=== PATIENT | female | born 2000 | race Caucasian/White ===

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

== ENCOUNTER → 2022-07-20 13:02 | Outpatient (CLI) | payer OTHER, SELFPAY ==
--- NOTE | ~2022-07-20 | CT_ITS ---
EXAMINATION: CT abdomen pelvis w con DATE: 07/20/2022 13:52 INDICATION: Left upper quadrant abdominal lump. TECHNIQUE: Computed tomography (CT) of the abdomen and pelvis was performed with 100 mL Omnipaque 350 intravenous contrast. Automated exposure control and iterative reconstruction technique were employe d. The dose-length product was 1303.02 mGy-cm. COMPARISON: CT abdomen and pelvis 06/29/2016 FINDINGS: The visualized portions of the lung bases are clear without pneumonia or pleural effusion. The heart size is normal. No pericardial effusion. The liver, gallbladder, spleen, pancreas, adrenal glands, and right kidney are normal. There is a 10 mm cyst in left kidney. There are no dilated loops of bowel. The appendix is not visualized. There are no pathologically enlarged lymph nodes. There is no free intraperitoneal fluid. There is mild thoracolumbar spondylosis. IMPRESSION: 1. No abnormal mass to correlate with the patient's symptoms. Reviewed, dictated and finalized at location A.
== END ==
PROVIDERS: PCP Family Medicine; Visit Provider Physician Assistant
DX: R19.02 Left upper quadrant abdominal swelling, mass and lump (principal); R19.7 Diarrhea, unspecified
CPT/HCPCS: 74177; Q9967

== ENCOUNTER → 2022-08-12 13:01 | Outpatient (CLI) | payer OTHER, SELFPAY ==
--- NOTE | ~2022-08-12 | US_ITS ---
EXAMINATION: US transvaginal DATE: 08/12/2022 13:36 INDICATION: History of ovarian cysts. Comparison:03/16/2021 TECHNIQUE: Multiple endovaginal sonographic images of the pelvis performed. FINDINGS: The uterus measures 4.6 x 2.6 x 3.7 cm. The endometrial complex measures 3 mm. The right ovary measures 2.6 x 2.9 x 1.6 cm and the left ovary is surgically absent. There are small follicles in the right ovary. Normal doppler signal in the right ovary. There is no free fluid in the pelvis. There are no abnormal masses seen on either side. IMPRESSION: 1. Unremarkable pelvic ultrasound. Reviewed, dictated and finalized at location A. ET CLERK
== END ==
PROVIDERS: PCP Family Medicine; Visit Provider Nurse Practitioner
DX: N83.209 Unspecified ovarian cyst, unspecified side (principal)
CPT/HCPCS: 76830

== ENCOUNTER 2024-05-16 08:13 | Outpatient (CLI) | payer OTHER, SELFPAY ==
--- NOTE | ~2024-05-16 | XR_ITS ---
EXAMINATION: XR UGI wo kub DATE: 05/16/2024 09:44 INDICATION: Abdominal pain. TECHNIQUE: The patient drank thick barium, gas-producing crystals, and thin barium. Fluoroscopy of th e esophagus, stomach, and proximal small bowel was performed. Fluoroscopy exposure time was 0.6 minut es. The total number of images was 279. Total dose-area product was 3.513 Gy-cm^2. COMPARISON: CT abdomen and pelvis 07/20/2022 FINDINGS: There is no mass or stricture of the esophagus. Esophageal motility is normal. There is no hiatal hernia. There was no gastroesophageal reflux with provocative maneuvers. The stomach and proxi mal small bowel show normal folding patterns. IMPRESSION: 1. Normal upper gastrointestinal series. Reviewed, dictated and finalized at location A.
--- NOTE | ~2024-05-16 | US_ITS ---
EXAMINATION: US abdomen complete DATE: 05/16/2024 08:55 INDICATION: Abdominal pain. TECHNIQUE: Multiple grayscale and Doppler ultrasound images of the abdomen were obtained. COMPARISON: CT abdomen and pelvis 11/20/2021 FINDINGS: The visualized portions of the head and body of the pancreas are normal. The liver is kati l without focal lesion. There is normal flow in main portal vein. The gallbladder is contracted and c ontains gallstones. There is no sonographic Wray sign. The common duct is normal and measures 4 mm. Abdominal aorta is normal in caliber. Inferior vena cava is normal. The kidneys are normal in size. The spleen is normal in size. IMPRESSION: 1. Cholelithiasis. No evidence of acute cholecystitis. Reviewed, dictated and finalized at location A.
== END 2024-05-16 08:14 | disposition home or self-care (01) ==
LOC: ANHIMG 08:15
PROVIDERS: PCP Family Medicine; Visit Provider Physician Assistant
DX: R10.9 Unspecified abdominal pain (principal); K80.20 Calculus of gallbladder without cholecystitis without obstruction
CPT/HCPCS: 74240; 76700

== ENCOUNTER 2024-09-25 10:41 | Outpatient (CLI) | payer OTHER, SELFPAY ==
--- NOTE | ~2024-09-25 | US_ITS ---
EXAMINATION: US pelvic complete w TV DATE: 09/25/2024 12:13 INDICATION: Pelvic pain , history of left oophorectomy. TECHNIQUE: Multiple transabdominal and endovaginal sonographic images of the pelvis were obtained. COMPARISON: 08/12/2022. FINDINGS: Uterus: 7.2 x 2.4 x 4.9 cm. Endometrial complex measures 5 mm. Right Ovary: 2.3 x 2.0 x 1.7 cm. Vascular flow is present. No adnexal mass. Left Ovary: Surgically absent. No adnexal mass. There is no free fluid in the pelvis. IMPRESSION: Status post left oophorectomy, otherwise normal pelvic sonogram findings. Reviewed, dictated and finalized at location K. COUNT ASSOCIATE
== END 2024-09-25 10:42 | disposition home or self-care (01) ==
PROVIDERS: PCP Internal Medicine; Visit Provider Obstetrics & Gynecology Gynecology
DX: R10.2 Pelvic and perineal pain (principal); Z90.721 Acquired absence of ovaries, unilateral
CPT/HCPCS: 76830; 76856

== ENCOUNTER 2024-12-28 10:45 | Outpatient (RCR) | payer OTHER, SELFPAY ==
--- NOTE | 2024-10-18 13:05 | OPREHPOC ---
Outpatient Therapy Plan of Care This is a Multidisciplinary Plan of Care that may contain components documented by all disciplines (PT, OT, and ST.) PT Problem 1 PT Problem #1 Knowledge Deficit PT Goal 1 Goal / Goal Update 1. Patient will perform independent HEP 2. Patient will verbalize urge suppression strategies Target Visit 6 PT Problem 2 PT Problem #2 Pain PT Goal 1 Goal / Goal Update 1. Pelvic pain no higher than 3/10 with typical activities 2. No pain with pelvic exam to allow for pap smears and other medical management Target Visit 6 PT Problem 3 PT Problem #3 Impaired Strength PT Goal 1 Goal / Goal Update 1. Improve hip strength to 4+/5 in all planes Target Visit 6 PT Problem 4 PT Problem #4 Impaired Functional ADLs PT Goal 1 Goal / Goal Update 1. Patient able to hold urine at least 30 minutes at all times Target Visit 6
--- NOTE | 2024-10-18 13:05 | PTOPEVAL1 ---
Assessment and note entered by Lee Ann Lee DPT Evaluation Information Assessment Status Evaluation ICD-10 Condition Codes (PT) Pain in low back M54.50,Pelvic and perineal pain R10.2 Subjective Information Pt reports prior pelvic PT which helped but symptoms have gotten worse. States she has pelvic floor pain that radiates to her low back. Pt had a 26 cm x 15 cm x 30 cm ovarian cyst when she was 15 and had it removed along with her ovary. Has had issues since then. Highest pain in the last month 03/05 and lowest 11/05. Voids less than 10 times a day, sometimes 1 time at night. Feels like she has to push to urinate. Has had incontinence in the past but none recently. Pain with urination all the time. Can hold urge to void up to 60 minutes if distracted but does note some urgency. BM most days of the week, no pain or fecal incontinence. Pelvic pain with any kind of penetration including pap smear, has tried to use tampons and is unable to tolerate. Pt has never been . Patient goal: less pain Returns to MD in July. Gall bladder removed June 2024. Has been diagnosed with PCOS. Reported Pain Level Pain Score 3: Self Report Assessment PT Clinical Summary The patient is presenting to skilled therapy with a history of pelvic pain, low back pain, and urinary urgency. She demonstrates increased pelvic floor muscle tone and pain with palpation, decreased pelvic floor strength/endurance, and decreased hip and abdominal strength. These impairments are contributing to her pain and difficulty with normal activities including tolerating pap smears. She will highly benefit from therapy to address these impairments to reduce pain and urgency and restore function. Plan of Care Interventions Electrical Stimulation,Hot Pack/Cold Pack,Manual Therapy,Neuro Re-education,Patient/Caregiver Education,Therapeutic Activities,Therapeutic Exercise PT Services Indicated Yes Treatment Frequency and 1 time a week for 6 visits Duration These treatments will address the objective and functional deficits as defined above. The patient will be advanced safely and appropriately in order for the patient to progress towards his/her prior level of function. Additional exercises will be introduced and as well as a comprehensive home exercise program upon discharge, if needed, ?to ensure carryover of functional gains achieved in the clinic. This treatment plan has been reviewed and agreement upon by the patient.
--- NOTE | 2024-12-07 11:37 | OPREHPOC ---
Outpatient Therapy Plan of Care This is a Multidisciplinary Plan of Care that may contain components documented by all disciplines (PT, OT, and ST.) PT Problem 1 PT Problem #1 Knowledge Deficit PT Goal 1 Goal / Goal Update 1. Patient will perform independent HEP 2. Patient will verbalize urge suppression strategies Target Visit 6 Progress Met PT Problem 2 PT Problem #2 Pain PT Goal 1 Goal / Goal Update 1. Pelvic pain no higher than 3/10 with typical activities 2. No pain with pelvic exam to allow for pap smears and other medical management Target Visit 9 Progress Not Met PT Problem 3 PT Problem #3 Impaired Strength PT Goal 1 Goal / Goal Update 1. Improve hip strength to 4+/5 in all planes Target Visit 6 Progress Met PT Problem 4 PT Problem #4 Impaired Functional ADLs PT Goal 1 Goal / Goal Update 1. Patient able to hold urine at least 30 minutes at all times Target Visit 9 Progress Partially Met
--- NOTE | 2024-12-07 11:37 | PTOPPROG ---
Assessment and note entered by Lee Ann Lee DPT Evaluation Information Assessment Status Progress ICD-10 Condition Codes (PT) Pain in low back M54.50,Pelvic and perineal pain R10.2 Subjective Information Overall patient is feeling some improvements with therapy. Highest pain in last week 03/05 and lowest 11/05. Voiding approximately 5 times a day and no incontinence. Pt reports she is currently on her menstrual cycle which does typically cause more pain. Assessment PT Clinical Summary The patient has made some progress in therapy and demonstrates improved hip strength and pelvic floor strength as well as improved pelvic floor muscle tone. She does continue to have pelvic pain with palpation and demonstrates overall hip, abdominal, and pelvic floor weakness. She will benefit from further skilled therapy to address pain and strength in order to restore full function. Plan of Care Interventions Electrical Stimulation,Hot Pack/Cold Pack,Manual Therapy,Neuro Re-education,Patient/Caregiver Education,Therapeutic Activities,Therapeutic Exercise PT Services Indicated Yes Treatment Frequency and 1 visit every other week x 3 visits Duration These treatments will address the objective and functional deficits as defined above. The patient will be advanced safely and appropriately in order for the patient to progress towards his/her prior level of function. Additional exercises will be introduced and as well as a comprehensive home exercise program upon discharge, if needed, ?to ensure carryover of functional gains achieved in the clinic. This treatment plan has been reviewed and agreement upon by the patient.
--- NOTE | 2025-01-18 09:48 | PCPTNOTE ---
This treatment is being continued on visit number [id number]. Please see documentation on both accounts to view progress. Completed interventions, outcomes, and problems have been marked as Inactive to facilitate the copying of the Care plan routine for recurring accounts.
== END 2025-01-16 23:59 | disposition home or self-care (01) ==
LOC: ANHPT 10:45
PROVIDERS: PCP Internal Medicine; Visit Provider Obstetrics & Gynecology Gynecology
DX: R10.2 Pelvic and perineal pain (principal)
CPT/HCPCS: 97110; 97112; 97140; 97161; 97530

== ENCOUNTER 2025-03-08 10:00 | Outpatient (RCR) | payer OTHER, SELFPAY ==
--- NOTE | 2025-01-18 09:49 | PCPTNOTE ---
The treatment documented on this account is a continuation of the treatment documented on visit number [id number]. Please see documentation on both accounts to view progress. The Plan of Care has been transitioned and updated within the new V#. I have addressed and agree with the discipline specific Problems, Interventions, and Goals for the current certification period. Completed interventions, outcomes, and problems have been marked as Inactive to facilitate the copying of the Care plan routine for recurring accounts.
--- NOTE | 2025-02-01 10:36 | OPREHPOC ---
Outpatient Therapy Plan of Care This is a Multidisciplinary Plan of Care that may contain components documented by all disciplines (PT, OT, and ST.) PT Problem 1 PT Problem #1 Knowledge Deficit PT Goal 1 Goal / Goal Update 1. Patient will perform independent HEP 2. Patient will verbalize urge suppression strategies Target Visit 6 Progress Met PT Problem 2 PT Problem #2 Pain PT Goal 1 Goal / Goal Update 1. Pelvic pain no higher than 3/10 with typical activities 2. No pain with pelvic exam to allow for pap smears and other medical management update 02/01/25 1. 4/10 highest 2. 3/10 Target Visit 11 Progress Partially Met PT Problem 3 PT Problem #3 Impaired Strength PT Goal 1 Goal / Goal Update 1. Improve hip strength to 4+/5 in all planes Target Visit 6 Progress Met PT Problem 4 PT Problem #4 Impaired Functional ADLs PT Goal 1 Goal / Goal Update 1. Patient able to hold urine at least 30 minutes at all times update 02/01/25 1. continue Target Visit 11 Progress Partially Met
--- NOTE | 2025-02-01 10:36 | PTOPPROG ---
Assessment and note entered by Lee Ann Lee DPT Evaluation Information Assessment Status Progress ICD-10 Condition Codes (PT) Pain in low back M54.50,Pelvic and perineal pain R10.2 Subjective Information Pt reports she has tried using the pelvic wand and thinks I did it wrong and bruised something. Used the wand one time for 30 minutes. Did not hurt at the time she used it but started noticing pain 1 hour after. With the exception of using the wand, her highest pain has been a 2/10. Still feels a constant, low level pain but it has been more manageable. Does feel like the exercises are helping but will notice increased pain after increased activity. Assessment PT Clinical Summary The patient has continued to make progress in therapy and reported greatly decreased pelvic pain overall until recently. Patient was again educated on proper use and duration of pelvic wand this session as well as pelvic icing to reduce flare-up of pain. She will benefit from continued therapy to further address pelvic floor muscular impairments in order to safely reduce pain and dysfunction. Plan of Care Interventions Electrical Stimulation,Hot Pack/Cold Pack,Manual Therapy,Neuro Re-education,Patient/Caregiver Education,Therapeutic Activities,Therapeutic Exercise PT Services Indicated Yes Treatment Frequency and 1 time every other week x 2 visits Duration These treatments will address the objective and functional deficits as defined above. The patient will be advanced safely and appropriately in order for the patient to progress towards his/her prior level of function. Additional exercises will be introduced and as well as a comprehensive home exercise program upon discharge, if needed, ?to ensure carryover of functional gains achieved in the clinic. This treatment plan has been reviewed and agreement upon by the patient.
--- NOTE | 2025-03-08 10:35 | OPREHPOC ---
Outpatient Therapy Plan of Care This is a Multidisciplinary Plan of Care that may contain components documented by all disciplines (PT, OT, and ST.) PT Problem 1 PT Problem #1 Knowledge Deficit PT Goal 1 Goal / Goal Update 1. Patient will perform independent HEP 2. Patient will verbalize urge suppression strategies Target Visit 6 Progress Met PT Problem 2 PT Problem #2 Pain PT Goal 1 Goal / Goal Update 1. Pelvic pain no higher than 3/10 with typical activities 2. No pain with pelvic exam to allow for pap smears and other medical management update 02/01/25 1. 4/10 highest 2. 3/10 update 03/08/25 1. 4/10 highest 2. 2-3/10 Target Visit 11 Progress Partially Met PT Problem 3 PT Problem #3 Impaired Strength PT Goal 1 Goal / Goal Update 1. Improve hip strength to 4+/5 in all planes Target Visit 6 Progress Met PT Problem 4 PT Problem #4 Impaired Functional ADLs PT Goal 1 Goal / Goal Update 1. Patient able to hold urine at least 30 minutes at all times update 02/01/25 1. continue update 03/08/25 1. met Target Visit 11 Progress Met
--- NOTE | 2025-03-08 10:35 | PTOPDC ---
Assessment and note entered by Lee Ann Lee DPT Evaluation Information Assessment Status Discharge ICD-10 Condition Codes (PT) Pain in low back M54.50,Pelvic and perineal pain R10.2 Subjective Information Highest 4/10 and lowest 0/10 recently. Has tried using the pelvic wand in 5 minute increments and has not increased her pain again. Keeping up with HEP and feels like the exercises are helping. Pt does report she feels like urine is normal and she does not have to push to void. Reported Pain Level Pain Score 2: Self Report Assessment PT Clinical Summary The patient overall has made good progress since starting therapy, but demonstrates limited progress since the last re-evaluation. Her pain remains approximately the same and she continues to have some tenderness with palpation of pelvic floor. Due to this, discharge is recommended at this time. She has been educated to continue HEP and to follow up with MD. Plan of Care PT Services Indicated No
== END 2025-03-13 11:15 | disposition home or self-care (01) ==
LOC: ANHPT 10:00
PROVIDERS: PCP Internal Medicine; Visit Provider Obstetrics & Gynecology Gynecology
DX: R10.2 Pelvic and perineal pain (principal)
CPT/HCPCS: 97110; 97112; 97140; 97530

== ENCOUNTER 2025-07-29 13:51 | Outpatient (CLI) | payer OTHER, SELFPAY ==
--- NOTE | ~2025-07-29 | MR_ITS ---
EXAMINATION: MR pelvis wo con DATE: 07/29/2025 15:48 INDICATION: Low back pain TECHNIQUE: Magnetic resonance imaging (MRI) of the pelvis centered at the sacrum and coccyx was performed without intravenous contrast. Sequences included sagittal PD-weighted FSE; oblique axial T1-weighted FSE and T2-weighted FS FSE; oblique coronal T2-weighted FSE, T1-weighted FSE and T2-weighted FS FSE.] COMPARISON: Lumbar spine MR dated 07/29/2025 FINDINGS: 3 mm retrolisthesis L5 on S1 with associated mild disc height loss, mild diffuse disc bulge with superimposed central annular fissure. Bone alignment is normal. Normal bone marrow signal throughout. No fracture or pathologic marrow replacing process. Mild osteoarthritis of the bilateral sacroiliac joints, right greater than left. No associated erosions or subarticular signal changes to suggest inflammatory sacroiliitis. Bladder and anteverted uterus and visualized portions of bowels are unremarkable. No free fluid in the pelvis. Mild osteoarthritis at the bilateral hips, left greater than right. IMPRESSION: 1. Mild lower lumbar spondylosis and mild osteoarthritis at the bilateral hip and sacroiliac joints. Reviewed, dictated and finalized at location A. RONMENTAL HEALTH TECHNOLOGIST IMPRESSION: 1. Mild lower lumbar spondylosis and mild osteoarthritis at the bilateral hip a nd sacroiliac joints.
--- NOTE | ~2025-07-29 | XR_ITS ---
XR thoracolumbar Indication: spondylolysis Comparison: None Findings: The vertebral heights are intact. No fracture or subluxation. The disc heights are intact. Soft tissues unremarkable Impression: No acute abnormality. Reviewed, dictated and finalized at location P. [employer] Impression: No acute abnormality.
--- NOTE | ~2025-07-29 | MR_ITS ---
MR lumbar spine wo con INDICATION: low back pain, other specified mononeuopathies . COMPARISON: None. TECHNIQUE: Multiplanar multisequence MRI of the lumbar spine were obtained without infusion of gadolinium. FINDINGS: [place] is made of five lumbar vertebrae. There is normal alignment of the lumbar vertebrae. There is mild diminished disc signal and disc height at T12-L1, L1-L2 and L2-L3 as well as L5-S1 consistent with mild degenerative disc desiccation. No intrathecal mass is seen. There are no areas of pathologic signal intensity within the bone marrow to suggest an acute fracture or neoplasm. The conus medullaris terminates at the normal level. L1-L2: No spinal or foraminal stenosis noted. There is no HNP or impingement. L2-L3: No spinal or foraminal stenosis noted. There is no HNP or impingement. L3-L4: Mild posterior disc bulging causing effacement of the anterior thecal sac. No significant central canal or neural foraminal stenosis. L4-L5: No spinal or foraminal stenosis noted. There is no HNP or impingement. L5-S1: Mild posterior disc bulging to the left causing mild narrowing of the left neural foramen. There is effacement of the anterior thecal sac. No significant central canal or right neural foraminal stenosis. IMPRESSION: Mild degenerative disc disease most significant at L5-S1 where there is disc bulging to the left causing mild narrowing of the left neural foramen and effacement of the anterior thecal sac. There is no compression fracture or abnormal cord signal intensity. Reviewed, dictated and finalized at location S. TRANSPORTER IMPRESSION: Mild degenerative disc disease most significant at L5-S1 where there is disc bu lging to the left causing mild narrowing of the left neural foramen and effacem ent of the anterior thecal sac. There is no compression fracture or abnormal cord signal intensity.
== END 2025-07-29 13:52 | disposition home or self-care (01) ==
PROVIDERS: PCP Internal Medicine; Visit Provider Physician Assistant
DX: M43.05 Spondylolysis, thoracolumbar region (principal); M54.59 Other low back pain; G58.8 Other specified mononeuropathies
CPT/HCPCS: 72080; 72148; 72195

== ENCOUNTER 2025-09-10 08:31 | Outpatient (CLI) | payer OTHER, SELFPAY ==
--- OUTSIDE RECORDS SUMMARY | 2025-07-02 15:00 | XMS_ITS ---
Author Organization [facility] Address [address] [place] [address] Phone [phone] Care Team Providers Care Hotel Maintenance Technician Name Role Phone Jocelyn Arguelles Primary Care Provider [phone] REASON FOR VISIT 4 week FU Social History Sex Observation Social History Observation Description Sex Observation Female Sexual Orientation Social History Observation Description Sexual Orientation Asexual Gender Identity Social History Observation Description Gender Identity Female Encounters Date Time Type Facility Location Provider Diagnosis 07/02/2025 03:00 PM Office Visit [place] [address] [place] [address] Jocelyn Arguelles Plan Of Treatment No Information Medical (General) History Medical History History ICD Code Abdominal pain- left side. Diarrhea Gall stones Bipolar 2 disorder F31.81 Surgical History Surgery Date(Month/Year) cyst removal cholecystectomy 2023 Hospitalization History Reason Date(Month/Year) X3 MH as a child MH 2019 Progress Notes * JOELKellieOB:[birth year] (24 yo F)Acc No.[id number]:07/02/2025 UNLOCKED PROGRESS NOTE Patient: Celena ESCALANTE Provider: Eugenia Arguelles DNP, TIMOTHY, UNHAIRER :2000 A ge:24 Y S ex:Female Date:07/02/2025 Address:[address], [place], [id number] Subjective: * Chief Complaints: * 1 . 4 week FU. * Screening: * * Medical History: Objective: * Vitals: Assessment: Plan: * Treatment: * * Electronic signature of Thu Arguelles on 09/10/2025 at 08:58 AM MONTESSORI PARAPROFESSIONAL Sign off status: Pending * Provider: Eugenia Arguelles DNP, TIMOTHY, UNHAIRER Date: Generated for Printing/Faxing/eTransmitting on: 11/11/2024 08:58 AM MONTESSORI PARAPROFESSIONAL
--- NOTE | ~2025-09-10 | US_ITS ---
EXAM/PROCEDURE: US pelvic complete w TV HISTORY: ovarian cyst patient status post left ovary removal. COMPARISON: Pelvic pain TECHNIQUE: Pelvic ultrasound LMP: 08/30/2025 FINDINGS: The anteflex uterus measures 6.7 x 2.4 x 4.4 cm and appears normal. Endometrial stripe: 4.6 mm Right ovary: 3.2 x 2.4 x 2.3 cm and normal in echotexture and vascular flow. 2 several prominent follicles are noted. No left ovary seen. No free fluid seen. IMPRESSION: 1. Normal-appearing right ovary. 2. Patient status post left ovary removal. Reviewed, dictated and finalized at location A. [place] STOCK CLERK
--- OUTSIDE RECORDS SUMMARY | 2025-09-10 08:58 | XMS_ITS | Encounter Summary ---
Author Organization [facility], [facility] Address [address] [place] [address] Care Team Providers Care Human Intelligence Name Role Phone Yunior Ruggiero MD Primary Care Provider Reason for Visit * Reason Onset Date Comments Order 10/01/2016 Mom needed an or samreen for the sleep study- I put one in and gave her the number Results 10/01/2016 Father came to a ppointment, mother woul like to discuss results and reccommendations with you. Please call Update 10/01/2016 Mother has an TRACTOR SWEEPER DRIVER close to home that know her history and will take Celena there. Encounter Details Date Type Department Care Team (Late Contact Info) Description 10/01/2016 Telephone [facility] - Endocrinology [address] [place] [address] Shantelle Shelton MD Order (Mom needed an order for the sleep study- I put one in and gave her the number); Results (Father came to appointment, mother woul like to discuss results and reccommendations with you. Please call); Update (Mother has an OBGYN close to home that know her history and will take Celena there. 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 Answer Date of Assessment Author No 07/20/2016 2:15 PM CDT Arley Lilly RN * Is person blind or have serious difficulty seeing? Answer Date of Assessment Author No 07/20/2016 2:15 PM CDT Arley Lilly RN * Does person have serious difficulty walking/climbing stairs? Answer Date of Assessment Author No 07/20/2016 2:15 PM CDT Arley Lilly RN * Does person have difficulty dressing/bathing? Answer Date of Assessment Author No 07/20/2016 2:15 PM CDT Arley Lilly RN * Does person have difficulty doing errands alone? Answer Date of Assessment Author No 07/20/2016 2:15 PM CDT Arley Lilly RN documented as of this encounter Mental Status * Does person have difficulty concentrating/remembering/making decisions? Answer Entry Date Author No 07/20/2016 2:15 PM CDT Arley Lilly RN documented in this encounter Miscellaneous Notes * Telephone Encounter - Shantelle Shelton MD - 10/04/2016 1:12 PM CST Left message for mother regarding my assessment and plan from the recent evaluation. ITURE MECHANIC documented in this encounter Plan of Treatment Not on file documented as of this encounter Visit Diagnoses Not on filedocumented in this encounter Additional Health Concerns Infection Onset Date Last Indicated Resolved Time COVID-19 Under Investigation 04/17/2020 04/17/2020 04/17/2020 4:25 PM CDT COVID-19 Under Investigation 04/17/2020 04/17/2020 04/17/2020 6:18 PM CDT documented as of this encounter Care Teams Human Intelligence Relationship Specialty Start Date End Date Yunior Ruggiero MD PCP - General Family Medicine 05/19/12 documented as of this encounter
--- OUTSIDE RECORDS SUMMARY | 2025-09-10 08:58 | XMS_ITS | Patient Health Record ---
Author Organization [facility] Address [address] [place] [address] Phone [phone] Care Team Providers Care Director Of Tax Services Name Role Phone Jocelyn Arguelles Primary Care Provider [phone] Allergies Allergen (clinical drug ingredient) Drug/Non Drug Allergy documented on EMR Reaction Allergy Type Onset Date Status contrast dye (uncoded) Unknown Allergy Active proplieline glycol (uncoded) itching Allergy Active Substance with sulfonamide structure and antibacterial mechanism of action (substance) Sulfa Antibiotics Unknown Drug Allergy Active Reason For Referral Referral Date 10/19/2024 Referral Status Pending Reason [facility] health. Wants paperwork faxed. signed order for the assessment. Signed supporting office visit notes. Completed demographics sheet. Fax- [phone] Diagnosis 1 Autism spectrum diso rder (F84.0) Referral Organization [facility] Referring Provider First Name Jocelyn Referring Provider Last Name Kindra Referring Provider Speciality Psychiatry Referred Provider Specialty Care Coordin mya (Nurse) General Notes Francisca Sanabria 10/24/2024 04:08:24 PM > This will need to be completed by Nurse and/or Medical records, Behav team unable to assist with faxing client's records, Elen Rodríguez 11/19/2024 08:06:02 AM >, Elen Rodríguez 11/19/2024 08:06:05 AM > Nurse faxed referral to provider listed below and mailed referral letter to patient's home address. Clinical Notes [facility], [address], [address], [place] [address], (P) [phone], (F) [phone] Referral Priority Routine Medications Medication SIG (Take, Route, Frequency, Duration) Notes Start Date End Date Diagnosis (ICD Code) Status hydrOXYzine HCl 25 MG Tablet 1 tablet as needed Orally four times a day; Duration: 30 days ROBERT (generalized anxiety disorder) (ICD_10 - F41.1) Active metFORMIN HCl 500 MG Tablet TAKE 1 TABLET BY MOUTH TWICE DAILY Oral; Duration: 90 Days Active Metoprolol Succinate ER 25 MG Tablet Extended Release 24 Hour TAKE 1 TABLET BY MOUTH EVERY DAY Oral; Duration: 90 Days Active Loratadine 10 MG Tablet TAKE 1 TABLET BY MOUTH EVERY DAY Oral; Duration: 30 Days Active Levothyroxine Sodium Active Atomoxetine HCl 40 MG Capsule 1 capsule in the morning Orally Once a day; Duration: 30 days 09/14/2024 ADHD (attention deficit hyperactivity disorder) (ICD_10 - F90.9) Active 1.5-30 MG-MCG Tablet TAKE 1 TABLET BY MOUTH EVERY DAY Oral; Duration: 84 Days Active Dicyclomine HCl 20 MG Tablet 1 tablet Orally Two times a day Not-Taking Social History Tobacco Use: Social History Observation Description Date Details (start date - stop date) Never Smoker NA - NA Sex Observation Social History Observation Description Sex Observation Female Sexual Orientation Social History Observation Description Sexual Orientation Asexual Gender Identity Social History Observation Description Gender Identity Female SDOH Assessments Date Tool Assessment Assessment LOINC Value Assessment Notes Goals Interventions 05/23/20 GARY (LOINC: 21114-0) Total Score: 5 Date Completed/Upda michelle: 12/19/19 What is your current housing situation? 56787-8 I have housing (SD09691-8) Are you worried about losing your housing? 17032-1 No (LA32-8) What is the highest level of school that you have finished? 16030-5 High school diploma or GED (IA11889-0) What is your current work situation? 04245-5 Unemployed and seeking work (HE51916-6) In the past year, have you o r any family members you live with been unable to get any of the following when it was really needed? Check all that apply 82558-6 I do not have problems meeting my needs Has lack of transportation k ept you from medical appointments, meetings, work or from getting things needed for daily living? 07097-3 No (LA32-8) How often do you see or talk to people that you care about and feel close to? (For example: talking to friends on the phone, visiting friends or family, going to lutheran or club meetings) 17424-0 More than 5 times a week (AN03090-8) How stressed are you? Stress is when someone feels tense, nervous, anxious, or can\t sleep at night because their mind is troubled 13164-5 A little bit (OW77028-4) In the past year have you sp ent more than 2 nights in a row in a fci, longterm, prison center, or juvenile correctional facility? 60772-9 No (LA32-8) Do you feel physically and emotionally safe where you currently live? 79904-1 Yes (LA33-6) In the past year, have you b een afraid of your partner or ex-partner? 20748-0 No (LA32-8) Are you a refugee? No What country are you from? [facility] PRAPARE Score: 5 Social History Social Determinants Social Info Question Answer Notes PRAPARE Date Completed/Updated: 12/18/2024 What is your current housing situation? I have h ousing Are you worried about losing your housing? No What is the highest level of school that you have finished? High school diploma or GED What is your current work situation? Unemployed and seeking work In the past year, have you o r any family members you live with been unable to get any of the following when it was really needed? Check all that apply I do not have problems meeting my needs Has lack of transportation k ept you from medical appointments, meetings, work or from getting things needed for daily living? No How often do you see or talk to people that you care about and feel close to? (For example: talking to friends on the phone, visiting friends or family, going to lutheran or club meetings) More than 5 times a week How stressed are you? Stress is when someone feels tense, nervous, anxious, or can\t sleep at night because their mind is troubled A little bit In the past year have you sp ent more than 2 nights in a row in a fci, longterm, prison center, or juvenile correctional facility? No Are you a refugee? No What country are you from? [place] Do you feel physically and e motionally safe where you currently live? Yes In the past year, have you b een afraid of your partner or ex-partner? No PRAPARE Score: 5 Miscellaneous Social Info Question Answer Notes Method of learning: Preferred method of learning: Discussion,Hearing Primary Social History Social Info Question Answer Notes Tobacco Use - do not use Tobacco Use: Non e Single Question Alcohol Screening How many times in the past year have you had (4 for women, or 5 for men) or more drinks in a day? 0 Employment Status Employment Status: Unemployed Illicit Substance Usage Illicit Substance Usage: No Alcohol Use Alcohol Use Frequency: Never Tobacco Use: Social Info Question Answer Notes Tobacco Control (Standard) Additional Fi ndings: Tobacco non-user Current nonsmoker,Never chewed tobacco,Never used moist powdered tobacco Tobacco use: Nonsmoker Problems Problem Type SNOMED Code ICD Code Dates Problem Status W/U Status Risk Notes Problem Attention deficit hyperactivity disorder (744989853) ADHD (attention deficit hyperactivity disorder) (F90.9) Added On:09/14 Active confirmed Problem Generalized anxiety disorder (17865980) ROBERT (generalized anxiety disorder) (F41.1) Added On:03/10 Active confirmed Problem Autism spectrum disorder (46190900) Autism spectrum disorder (F84.0) Added On:10/19 Active confirmed Problem Overweight (342209628) Over weight (E66.3) Added On:07/26 Active confirmed Vital Signs Vital Sign Value Notes Appt Date Heart Rate 120 /min 07/26/2025 Temperature 98.2 degrees Fahrenheit 06/28 Respiratory Rate 16 /min 07/26/2025 Blood pressure diastolic 68 mm Hg Oximetry 97 % 07/26/2025 Height 66 inches in 07/26/2025 Blood pressure systolic 110 mm Hg 06/28 Weight 239.2 lbs 07/26/2025 BMI 38.6 kg/m2 07/26/2025 Encounters Date Time Type Facility Location Provider Diagnosis 09/14/20 04:00 PM Telehealth Office Visit, Est Pt., Level 4 (80264) [address] [address] Jocelyn Arguelles Bipolar 2 disorder F31.81 ; ROBERT (generalized anxiety disorder) F41.1 and ADHD (attention deficit hyperactivity disorder) F90.9 10/19/19 04:00 PM Telehealth Office Visit, Est Pt., Level 4 (44023) [address] [address] Jocelyn Arguelles Bipolar 2 disorder F31.81 ; ROBERT (generalized anxiety disorder) F41.1 ; ADHD (attention deficit hyperactivity disorder) F90.9 and Autism spectrum disorder F84.0 11/16/19 01:20 PM Telehealth Office Visit, Est Pt., Level 4 (08464) [address] [address] Jocelyn Arguelles Bipolar 2 disorder F31.81 ; Autism spectrum disorder F84.0 ; ROBERT (generalized anxiety disorder) F41.1 and ADHD (attention deficit hyperactivity disorder) F90.9 02/22/20 25 03:40 PM Telehealth Office Visit, Est Pt., Level 4 (70122) [place] [address] [place] [address] Jocelyn Arguelles ADHD (attention deficit hyperactivity disorder) F90.9 and ROBERT (generalized anxiety disorder) F41.1 05/23/20 25 01:00 PM Telehealth Office Visit, Est Pt., Level 4 (95095) [place] [address] [place] [address] Jocelyn Arguelles ROBERT (generalized anxiety disorder) F41.1 and ADHD (attention deficit hyperactivity disorder) F90.9 07/26/20 01:20 PM Office Visit [address] [place] [address] Jocelyn Arguelles ROBERT (generalized anxiety disorder) F41.1 ; Autism spectrum disorder F84.0 ; ADHD (attention deficit hyperactivity disorder) F90.9 and Over weight E66.3 10/08/19 09:07 AM Telephone Encounter [facility] [address] [place] [address] Jocelyn Arguelles 12/21/19 02:24 PM Telephone Encounter [address] [place] [address] Jocelyn Arguelles 05/24/20 01:16 PM Telephone Encounter [facility] [address] [place] [address] Jocelyn Arguelles 06/05/20 03:25 PM Telephone Encounter [address] [place] [address] Jocelyn Arguelles Assessments Encounter Date Diagnosis (ICD Code) Assessment Notes Treat ment Notes Section Notes 09/14/2024 Bipolar 2 disorder (ICD-10 - F31.81) 10/19/2024 ROBERT (generalized anxiety disorder) (ICD-10 - F41.1) 10/19/2024 Bipolar 2 disorder (ICD-10 - F31.81) 11/16/2024 Autism spectrum disorder (ICD-10 - F84.0) Autism testing- related to suspected diagnosis/ symptoms of anxiety, difficulty with adjusting, history of reactive aggression, issues with stimulation. 11/16/2024 Bipolar 2 disorder (ICD-10 - F31.81) 02/21/2025 ADHD (attention deficit hyperactivity disorder) (ICD-10 - F90.9) 05/23/2025 ROBERT (generalized anxiety disorder) (ICD-10 - F41.1) Increase atomoxetine to help with inattention. Continue services as scheduled. Continue follow ups with specialists as recommended. Labs completed recently. May self-administer medications or be administered own oral medications per [place] protocols. Provided informed consent with understanding of side effects, adverse effects, risks and benefits as well as alternative treatments as previously discussed and with the above recommended medications & other aspects of the treatment program. Agrees to return sooner if symptoms worsen or suicidal or homicidal ideations occur. 07/26/2025 ROBERT (generalized anxiety disorder) (ICD-10 - F41.1) 07/26/2025 Autism spectrum disorder (ICD-10 - F84.0) 09/14/2024 ROBERT (generalized anxiety disorder) (ICD-10 - F41.1) 11/16/2024 ROBERT (generalized anxiety disorder) (ICD-10 - F41.1) 02/21/2025 ROBERT (generalized anxiety disorder) (ICD-10 - F41.1) 05/23/2025 ADHD (attention deficit hyperactivity disorder) (ICD-10 - F90.9) 10/19/2024 ADHD (attention deficit hyperactivity disorder) (ICD-10 - F90.9) 11/16/2024 ADHD (attention deficit hyperactivity disorder) (ICD-10 - F90.9) 10/19/2024 Autism spectrum disorder (ICD-10 - F84.0) 07/26/2025 ADHD (attention deficit hyperactivity disorder) (ICD-10 - F90.9) 07/26/2025 Over weight (ICD-10 - E66.3) 09/14/2024 ADHD (attention deficit hyperactivity disorder) (ICD-10 - F90.9) 09/14/2024 Other Add strattera to help with inattention. Since she has a cardiac history, avoiding stimulants. Starting a low dose due to hx of bipolar. Moods have been stable without medication other than hydroxyzine. May self-administer medications or be administered own oral medications per [place] protocols. Provided informed consent with understanding of side effects, adverse effects, risks and benefits as well as alternative treatments as previously discussed and with the above recommended medications & other aspects of the treatment program. Agrees to return sooner if symptoms worsen or suicidal or homicidal ideations occur. 10/19/2024 Other Continue current medications. Continue services as scheduled. Referral for autism testing- [facility]. Wants paperwork faxed. signed order for the assessment. Signed supporting office visit notes. Completed demographics sheet. Labs completed recently. May self-administer medications or be administered own oral medications per [place] protocols. Provided informed consent with understanding of side effects, adverse effects, risks and benefits as well as alternative treatments as previously discussed and with the above recommended medications & other aspects of the treatment program. Agrees to return sooner if symptoms worsen or suicidal or homicidal ideations occur. 11/16/2024 Other Autism testing. Continue current medications. Continue services as scheduled. Labs completed recently. May self-administer medications or be administered own oral medications per [place] protocols. Provided informed consent with understanding of side effects, adverse effects, risks and benefits as well as alternative treatments as previously discussed and with the above recommended medications & other aspects of the treatment program. Agrees to return sooner if symptoms worsen or suicidal or homicidal ideations occur. 02/21/2025 Other Continue curren t medications. Continue services as scheduled. Labs completed recently. May self-administer medications or be administered own oral medications per [place] protocols. Provided informed consent with understanding of side effects, adverse effects, risks and benefits as well as alternative treatments as previously discussed and with the above recommended medications & other aspects of the treatment program. Agrees to return sooner if symptoms worsen or suicidal or homicidal ideations occur. 07/26/2025 Other Continue current medications. Labs done recently. Continue services as scheduled. May self-administer medications or be administered own oral medications per [place] protocols. Provided informed consent with understanding of side effects, adverse effects, risks and benefits as well as alternative treatments as previously discussed and with the above recommended medications & other aspects of the treatment program. Agrees to return sooner if symptoms worsen or suicidal or homicidal ideations occur. Plan Of Treatment No Information Insurance Providers Payer Name Payer Address Payer Phone Subscriber Number Group Number Insured Name Patient Relationship to Insured Coverage Start Date Coverage End Date [employer] [address] [place] [address] [id number] Celena Maldonado Self - patient is the insured 4 [facility] [address] [address] [place] [address] [id number] [phone] Celena Maldonado Self - patient is the insured 1 3 [employer] [address] [place] [address] [id number] Celena Maldonado Self - patient is the insured 4 Medical (General) History Medical History History ICD Code Abdominal pain- left side. Diarrhea Gall stones Bipolar 2 disorder F31.81 Surgical History Surgery Date(Month/Year) cyst removal cholecystectomy 2023 Hospitalization History Reason Date(Month/Year) X3 MH as a child 2019
--- OUTSIDE RECORDS SUMMARY | 2025-09-10 08:58 | XMS_ITS | Clinical Summary ---
Author Organization [facility] [employer] Address [address] [address] Care Team Providers Care Software Qa Manager Name Role Phone Yunior Ruggiero MD Primary Care Provider [phone] Source Comments [facility],non-owned Affiliates and Associated Physician Practices is amultiple site organization consisting of ambulatory clinics and hospital sitesin [place], [place], [place] and [place]. This disclosure is being madepursuant to the Care Everywhere program and may not contain all information available regarding this patient. Last updated 18.[facility] [employer] Allergies Active Allergy Reactions Criticality Noted Date Comments Ziprasidone Other 06/15/2012 nightmares Sulfa Drugs 05/19/2012 Possible allergy per mom Sulfa Drugs 05/19/2012 Medications * This document contains information received from the source organization and may not represent a complete record from that organization. * Be aware that medications may not be up to date on this document. Alwaysverify current medications with the patient. buPROPion SR 12hr (WELLBUTRIN-SR) 100 MG tabletIndications:D epressive Phase Bipolar Mood Disorder Take 1 tablet by mouth once daily Reasons: Depressive Phase of Manic-Depression 30 tablet 2 020 Active norethin-eth estradiol-FE (MICROGESTIN FE ) 1.5-30 MG-MCG tabletIndications:P olycystic Ovary Syndrome Take 1 tablet by mouth once daily Reasons: Polycystic Ovary Syndrome 020 Active melatonin 10 MGIndications:Insom reyes Take 10 mg by mouth at bedtime Reasons: Trouble Sleeping Active levothyroxine (SYNTHROID) 75 MCG tabletIndications:H ypothyroidism Take 1 tablet by mouth once daily Reasons: Underactive Thyroid Active metFORMIN (GLUCOPHAGE) 1000 MG tabletIndications:O varian Hyperstimulation Syndrome Take 1 tablet by mouth at bedtime Reasons: Ovarian Hyperstimulation Syndrome Active metoprolol succinate XL 24hr (TOPROL XL) 50 MG tabletIndications:H ypertension Take 1 tablet by mouth once daily Reasons: High Blood Pressure Disorder Active sertraline (ZOLOFT) 100 MG tabletIndications:M ajor Depressive Disorder Take 2 tablets by mouth once daily Reasons: Major Depressive Disorder 30 tablet 2 Active acetaminophen (TYLENOL) 325 MG tabletIndications:P ain Take 2 tablets by mouth every 4 hours as needed Maximum allowable Acetaminophen amount = 4 Grams (4000 mg) / 24 hours. Reasons: Pain Active iron polysaccharides (NIFEREX 150) 150 MG capsuleIndications: Iron Deficiency Anemia Take 1 capsule by mouth once daily Reasons: Anemia From Inadequate Iron in the Body Active lurasidone (LATUDA) 20 MG tabletIndications:D epressive Phase Bipolar Mood Disorder Take 1 tablet by mouth daily with breakfast Reasons: Depressive Phase of Manic-Depression 30 tablet 2 Active vitamin D3-cholecalciferol (CHOLECALCIFEROL) 25 MCG (1000 UNITS) tabletIndications:V itamin D Deficiency Take 2 tablets by mouth once daily Reasons: Vitamin D Deficiency Active Active Problems Problem Noted Date Diagnosed Date Bipolar disorder with current episode depressed 04/24/2020 Drug overdose, intentional 04/14/2020 Assessment & Plan (04/17/2020 1:01 PM CDT): Assessment: Celena Maldonado is a 19 year old female admitted for suicide attempt via intentional ingestion of extended release Wellbutrin, total of ~2250 mg. She is currently having no symptoms. Per access center report, Poison Control would expect to start seeing adverse effects around time of transfer/admission--including tachycardia, sleepiness, confusion, and agitation. Can have delayed onset of seizures (up to 24 hours) with the extended release tablets; according to one study, the median dose of bupropion that led to a seizure is 4400 mg. She is currently undergoing medical workup so that she can be cleared for placement by Central Intake. Plan: - Additional workup requested (04/16-04/17): Echo: normal UDS: negative UA: sp gr 1.028, 3+ blood, 2+ leukocytes, 21-50 WBC, trace bacteria; no nitrites CBC: unremarkable BMP: unremarkable TSH: normal HCG: negative - CR monitors - Regular diet - VS q4h - 1:1 sitter and safety tray - Toxicology Consult Assessment & Plan (04/17/2020 10:34 AM CDT): Assessment: Celena Maldonado is a 19 year old female admitted for suicide attempt via intentional ingestion of extended release Wellbutrin, total of ~2250 mg. She is currently having no symptoms. Per access center report, Poison Control would expect to start seeing adverse effects around time of transfer/admission--including tachycardia, sleepiness, confusion, and agitation. Can have delayed onset of seizures (up to 24 hours) with the extended release tablets; according to one study, the median dose of bupropion that led to a seizure is 4400 mg. She is currently undergoing medical workup so that she can be cleared for placement by Central Intake. Plan: - Additional workup requested (04/16-04/17): Echo: normal UDS: negative UA: sp gr 1.028, 3+ blood, 2+ leukocytes, 21-50 WBC, trace bacteria; no nitrites CBC: unremarkable BMP: unremarkable TSH: normal HCG: negative - CR monitors - Regular diet - VS q4h - 1:1 sitter and safety tray - Toxicology Consult Assessment & Plan (04/16/2020 6:06 PM CDT): Assessment: Celena Maldonado is a 19 year old female admitted for suicide attempt via intentional ingestion of extended release Wellbutrin, total of ~2250 mg. She is currently having no symptoms. Per access center report, Poison Control would expect to start seeing adverse effects around time of transfer/admission--including tachycardia, sleepiness, confusion, and agitation. Can have delayed onset of seizures (up to 24 hours) with the extended release tablets; according to one study, the median dose of bupropion that led to a seizure is 4400 mg. She requires admission for close monitoring and possible treatment for side effects. Plan: - CR monitors - Regular diet - VS q4h - 1:1 sitter and safety tray - Toxicology Consult - Echo done today to r/o structural cause of LBBB- normal - Central Intake consulted for bed placement now that she is medically cleared Assessment & Plan (04/14/2020 11:21 PM CDT): Assessment: Celena Maldonado is a 19 year old female admitted for suicide attempt via intentional ingestion of extended release Wellbutrin, total of ~2250 mg. She is currently having no symptoms. Per access center report, Poison Control would expect to start seeing side effects around time of transfer/admission-- including tachycardia, sleepiness, confusion, and agitation. Can have delayed onset of seizures with the extended release tablets. She requires admission for close monitoring and possible treatment for side effects. Plan: Admit to General Pediatrics, Dr. Bond - CR monitors - Regular diet - VS q4h - 1:1 sitter and safety tray - Toxicology Consult - Central Intake consult when medically stable Cystadenoma of left ovary 08/23/2016 Obesity 08/23/2016 Female hirsutism 08/23/2016 Wound infection after surgery 07/20/2016 ADHD (attention deficit hyperactivity disorder) Toxic encephalopathy Serotonin neurotoxicity Mydriasis Clonus Current moderate episode of major depressive dis order Resolved Problems Problem Noted Date Diagnosed Date Resolved Date Bipolar affective disorder, currently depressed, moderate 04/24/2020 04/24/2020 Suicidal behavior 04/21/2020 04/24/2020 Bipolar I disorder 04/17/2020 0 Bupropion overdose 0 Ingestion of substance 04/24 Dizziness 04/24/2020 Immunizations Immunization Administration Dates Next Due INFLUENZA VACCINE 12/07/2013,06/16/2012 INFLUENZA VACCINE, QUADR. (F LUZONE; FLULAVAL; FLUARIX; AFLURIA QUADRIVALENT; 6MO+), 0.5 ML (IIV4) 07/02/2016 Family History Medical History Relation Name Comments Asthma Father Bipolar Disorder Father Depression Father Diabetes Maternal Grandfather Heart Failure Maternal Grandfather Hypertension Maternal Grandfather Alcohol abuse Maternal Uncle Arthritis - Osteo Maternal Uncle Schizophrenia Maternal Uncle Bipolar Disorder Mother Depression Mother Migraine Mother Relation Name Status Comments Father Maternal Grandfather Maternal Uncle Mother Social History Tobacco Use Types Packs/Day Years Used Date Smoking Tobacco: Never Smokeless Tobacco: Never Alcohol Use Standard Drinks/Week Comments No 0 (1 standard drink = 0.6 oz pur e alcohol) Comments No Sex and Gender Information Value Date Recorded Sex Assigned at Not on file 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 Gender Identity Not on file Sexual Orientation Not on file Last Filed Vital Signs Vital Sign Reading Time Taken Comments Blood Pressure 135/75 04/24/2020 9:42 AM CDT Pulse 101 04/24/2020 9:42 AM CDT Temperature 36.8 C (98.3 F) 04/24/2020 9:42 AM CDT Respiratory Rate 20 04/24/2020 9:42 AM CDT Oxygen Saturation 98% 04/24/2020 9:42 AM CDT Inhaled Oxygen Concentration - - Weight 128.7 kg (283 lb 12.8 oz) 04/21/2020 9:03 AM CDT Height 181 cm (5' 11.26) 04/18/2020 12 :30 AM CDT Body Mass Index 39.29 04/18/2020 12:30 AM CDT Plan of Treatment Health Maintenance Due Date Last Done Comments HIV SCREENING 2017 HPV VACCINE (1 - 3-dose series) 2017 CHLAMYDIA/GONORRHEA SCREENING 2018 MENINGOCOCCAL (Group B) VACCINE SHARED DECISION-MAKING (1 of 2 - Standard) 2018 HEPATITIS C SCREENING 11/08/2020 DTAP/TDAP/TD VACCINES (1 - Tdap) 2021 HEPATITIS B VACCINE (1 of 3 - 19+ 3-dose series) 2021 COVID-19 VACCINE ( - 2024-2 6 season) 2025 INFLUENZA VACCINE (#1) 2025 6, 12/07/2013, 06/16/2012 ZOSTER VACCINE (1 of 2) 2052 HIB VACCINE Aged Out No longer eligi ble based on patient's age to complete this topic MENINGOCOCCAL GROUPS A/C/Y/W VACCINE Aged Out No longer eligible b ased on patient's age to complete this topic PNEUMOCOCCAL VACCINE Aged Out No long er eligible based on patient's age to complete this topic Insurance [facility] Member Subscriber Plan / Payer ( fective 2025-Present) Name:Celena Maldonado Member ID:Not on file Relation to Subscriber:Child Name:FRANKI MALDONADO Date of :1975 (Home) (Work) Address: [address] [place] [address] Payer ID:[id number] (NAIC) Type:PPO Address: [place] [phone] [facility] Advance Directives * Full Code (Latest Code Status on File) Date Activated Date Inactivated Comments 04/18/2020 12:14 AM 04/24/2020 3:12 PM * Full Code Date Activated Date Inactivated Comments 04/14/2020 10:16 PM 04/18/2020 12:06 AM * Full Code Date Activated Date Inactivated Comments 07/16/2016 2:26 PM 07/20/2016 3:18 PM * Full Code Date Activated Date Inactivated Comments 06/30/2016 7:01 PM 07/02/2016 6:12 PM * Full Code Date Activated Date Inactivated Comments 06/30/2016 1:05 AM 06/30/2016 7:01 PM Care Teams Software Qa Manager Relationship Specialty Start Date End Date Yunior Ruggiero MD PCP - General Family Medicine 05/19/12
== END 2025-09-10 08:32 | disposition home or self-care (01) ==
PROVIDERS: PCP Internal Medicine; Visit Provider Nurse Practitioner
DX: N83.209 Unspecified ovarian cyst, unspecified side (principal)
CPT/HCPCS: 76830; 76856